=== PATIENT | male | born 1940 | race Caucasian/White ===

== ENCOUNTER 2018-05-15 15:42 | Emergency (ER) | payer MEDICARE ==
[~2018-05-15] VITALS: Ht 185.4 cm; Wt 89.8 kg
[2018-05-15] MEDS ORDERED: LOSARTAN (15:52)
[2018-05-15] MEDS ORDERED: CRESTOR (15:52)
--- NOTE | 2018-05-15 16:38 | NUR ---
Patient discharged to home in stable conditon. Written and verbal after care instructions given. Patient verbalizes understanding of instructions.
== END 2018-05-15 16:39 | disposition home or self-care (01) ==
LOC: ER 15:44
DX: S89.91XA Unspecified injury of right lower leg, initial encounter (principal); I10 Essential (primary) hypertension; E78.5 Hyperlipidemia, unspecified; Z88.0 Allergy status to penicillin; W01.0XXA Fall on same level from slipping, tripping and stumbling without subsequent striking against object, initial encounter; Y93.89 Activity, other specified; Y92.89 Other specified places as the place of occurrence of the external cause; Y99.8 Other external cause status
CPT/HCPCS: A4663

== ENCOUNTER 2020-01-25 10:26 | Emergency (ER) | payer MEDICARE ==
[~2020-01-25] VITALS: Ht 182.9 cm; Wt 86.2 kg
[~2020-01-25 10:26] MED LIST: CRESTOR; LOSARTAN
[2020-01-25] MEDS ORDERED: KETOROLAC TROMETHAMINE 30 MG INJ IM ONE (10:45)
[2020-01-25] MEDS ORDERED: KETOROLAC TROMETHAMINE 30 MG INJ ONE (10:50)
--- NOTE | 2020-01-25 10:52 | NUR ---
PT IS IN ROOM #2A. DR RESENDEZ EVALUATED THE PT.
--- NOTE | 2020-01-25 11:41 | NUR ---
PT WAS D/C'd TO HOME. D/C INSTRUCTIONS GIVEN TO THE PT BY DR RESENDEZ.
[2020-01-25 11:42] VITALS: BP 134/78
== END 2020-01-25 11:43 | disposition home or self-care (01) ==
LOC: ER 10:26
DX: S29.012A Strain of muscle and tendon of back wall of thorax, initial encounter (principal); X50.9XXA Other and unspecified overexertion or strenuous movements or postures, initial encounter; Y93.53 Activity, golf; Y92.838 Other recreation area as the place of occurrence of the external cause; Y99.8 Other external cause status; I10 Essential (primary) hypertension; E78.00 Pure hypercholesterolemia, unspecified
CPT/HCPCS: 71101; 93005; 96372; 99284; J1885; A4663